=== PATIENT | female | born 1985 | race Caucasian/White ===

== ENCOUNTER 2020-05-30 04:48 | Day surgery (SDC) | payer OTHER ==
[2020-05-29 12:35] VITALS: BMI 26.4
[2020-05-30 09:21] LABS: INR 0.94 (0.83-1.09); PROTHROMBIN TIME (PATIENT) 11.6 SEC (9.7-13.0)
[2020-05-30 09:27] LABS: BASO % 0.5 % (0-2.0); EOS % 1.8 % (0-4.5); HEMATOCRIT 34.6 % (32.4-45.2); HEMOGLOBIN 11.2 GM/dL (10.7-15.3); LYMPH % 24.5 % (8-40); MCH 25.3 pg (25.7-33.7); MCHC 32.5 g/dl (32.0-36.0); MEAN CELL VOLUME 78.1 fl (80-96); MEAN PLT VOLUME 8.4 fl (7.5-11.1); MONO % 6.7 % (3.8-10.2); NEUT % 66.5 % (42.8-82.8); PLATELET COUNT 393 K/MM3 (134-434); RBC 4.43 M/mm3 (3.60-5.2); RDW 15.1 % (11.6-15.6); WHITE BLOOD COUNT 7.7 K/mm3 (4.0-10.0)
[2020-05-30 13:20] LABS: BF GLUCOSE (CSF ONLY) 58 mg/dL (40-70)
[2020-05-30 13:50] LABS: CSF APPEARANCE CLEAR; CSF COLOR COLORLESS; CSF WBC 1
[2020-05-30 14:24] VITALS: BP 101/54; PULSE 85; TEMP 97.5
== END 2020-05-30 14:23 | disposition home or self-care (01) ==
LOC: JRADIR 04:48
PROVIDERS: ATTEND Psychiatry & Neurology Neurology
PROC: 009U3ZX Drainage of Spinal Canal, Percutaneous Approach, Diagnostic (ICD-10-PCS; principal; 2020-05-30)
DX: G35 Multiple sclerosis (principal)
CPT/HCPCS: 36415; 62272; 82040; 82042; 82784; 82787; 82945; 83873; 83916; 84157; 84703; 85025; 85610; 87070; 87205

== ENCOUNTER 2020-05-31 16:33 | Emergency (ER) | payer OTHER ==
[2020-05-31 16:55] VITALS: TEMP 98.2; BMI 26.5
[2020-05-31] MEDS ORDERED: ACETAMINOPHEN 1000 MG/100 ML VIAL (NON FORMULARY) IVPB ONE (18:18)
[2020-05-31] MEDS ORDERED: LACTATED RINGERS SOLUTION 1000 ML INFUS.BAG IV ONE (18:20)
[2020-05-31] MEDS ORDERED: METOCLOPRAMIDE HCL INJECTION 10 MG/2 ML VIAL IVPUSH ONE (18:20)
[2020-05-31] MEDS ORDERED: ACETAMINOPHEN INJECTION 100 ML IVPB ONE (18:35)
[2020-05-31] MEDS ORDERED: METOCLOPRAMIDE HCL INJECTION 10 MG/2 ML VIAL ONE (18:35)
[2020-05-31] MEDS ORDERED: ACETAMINOPHEN/CAFFEINE/BUTALBITAL 1 TAB PO ONE (19:25)
[2020-05-31] MEDS ORDERED: ACETAMINOPHEN/CAFFEINE/BUTALBITAL 1 TAB ONE (19:43)
[2020-05-31 20:15] LABS: BASO % 1.1 % (0-2.0); EOS % 1.1 % (0-4.5); HEMOGLOBIN 11.3 GM/dL (10.7-15.3); LYMPH % 24.3 % (8-40); MCH 25.1 pg (25.7-33.7); MCHC 32.3 g/dl (32.0-36.0); MEAN CELL VOLUME 77.6 fl (80-96); MEAN PLT VOLUME 8.2 fl (7.5-11.1); MONO % 6.8 % (3.8-10.2); NEUT % 66.7 % (42.8-82.8); PLATELET COUNT 384 K/MM3 (134-434); RBC 4.51 M/mm3 (3.60-5.2); RDW 14.9 % (11.6-15.6); WHITE BLOOD COUNT 9.3 K/mm3 (4.0-10.0)
[2020-05-31 20:26] LABS: POTASSIUM 4.7 mmol/L (3.5-5.1)
[2020-05-31 20:29] LABS: ALBUMIN 3.6 g/dl (3.4-5.0); BLOOD UREA NITROGEN 7.5 mg/dL (7-18)
[2020-05-31 20:32] LABS: CREATININE 0.6 mg/dL (0.55-1.3)
[2020-05-31 20:33] LABS: TOT PROT 7.4 g/dl (6.4-8.2)
[2020-05-31 20:34] LABS: BILIRUBIN,TOTAL 0.2 mg/dL (0.2-1)
[2020-05-31 22:22] VITALS: BP 124/87; PULSE 77
== END 2020-05-31 22:23 | disposition home or self-care (01) ==
LOC: JER 16:33
PROC: 3E0333Z Introduction of Anti-inflammatory into Peripheral Vein, Percutaneous Approach (ICD-10-PCS; principal; 2020-05-31)
PROC: 3E033GC Introduction of Other Therapeutic Substance into Peripheral Vein, Percutaneous Approach (ICD-10-PCS; 2020-05-31)
DX: G97.1 Other reaction to spinal and lumbar puncture (principal)
CPT/HCPCS: 36415; 70450-TC; 80053; 84703; 85025; 99284-25; C9803; J0131; U0003

== ENCOUNTER 2023-04-27 04:01 | Inpatient (IN) | payer OTHER ==
[2023-04-21 16:41] VITALS: BMI 26.4
[2023-04-27] MEDS ORDERED: ceFAZolin SODIUM 1 GM VIAL ONE (08:34)
[2023-04-27] MEDS ORDERED: SUCCINYLCHOLINE CHLORIDE 200 MG/10 ML SYRINGE ONE (08:58)
[2023-04-27] MEDS ORDERED: PROPOFOL 20 ML ONE (08:58)
[2023-04-27] MEDS ORDERED: ROCURONIUM BROMIDE 50 MG/5 ML SYRINGE ONE (08:58)
[2023-04-27] MEDS ORDERED: MIDAZOLAM HCL 2 MG/2 ML SINGLE DOSE VIAL ONE (08:59)
[2023-04-27] MEDS ORDERED: HYDROmorphone HCl 2 MG/ML VIAL ONE (09:00)
[2023-04-27] MEDS ORDERED: CEFAZOLIN SODIUM 2 GM in DEXTROSE 5%-WATER 100 ML IVPB ONE (09:30)
[2023-04-27] MEDS ORDERED: ONDANSETRON 4 MG/2 ML VIAL IVPUSH PRN (10:16)
[2023-04-27] MEDS ORDERED: oxyCODONE HCL 5 MG TABLET PO PRN (10:16)
[2023-04-27] MEDS ORDERED: LIDOCAINE 1%/EPI 1:100000 (20 ML MULTI DOSE VIAL) ONE (10:21)
[2023-04-27] MEDS ORDERED: BUPIVACAINE HCL/PF 0.5% (5MG/ML) 10 ML VIAL ONE (10:21)
[2023-04-27] MEDS ORDERED: LACTATED RINGERS SOLUTION 1,000 ML IV SCH (10:30)
[2023-04-27] MEDS ORDERED: ceFAZolin SODIUM 1 GM VIAL IVPB ONE (11:21)
[2023-04-27] MEDS ORDERED: SUGAMMADEX SODIUM 200 MG/2 ML VIAL ONE (11:29)
[2023-04-27] MEDS ORDERED: LIDOCAINE HCL/PF 2% SDV 5ML VIAL ONE (11:37)
[2023-04-27] MEDS ORDERED: METOCLOPRAMIDE HCL INJECTION 10 MG/2 ML VIAL ONE (11:37)
[2023-04-27] MEDS ORDERED: SODIUM CHLORIDE 0.9% P/F 10 ML VIAL IJ ONE (11:37)
[2023-04-27] MEDS ORDERED: ONDANSETRON 4 MG/2 ML VIAL ONE (11:37)
[2023-04-27] MEDS ORDERED: DEXAMETHASONE SOD PHOSPHATE 4 MG/1 ML VIAL ONE (11:37)
[2023-04-27 17:33] LABS: BASO % 0.1 % (0-2.0); HEMATOCRIT 24.3 % (32.4-45.2); HEMOGLOBIN 7.1 GM/dL (10.7-15.3); LYMPH % 2.8 % (8-40); MCH 20.9 pg (25.7-33.7); MCHC 29.1 g/dl (32.0-36.0); MEAN PLT VOLUME 7.5 fl (7.5-11.1); MONO % 0.5 % (3.8-10.2); NEUT % 96.6 % (42.8-82.8); PLATELET COUNT 634 10^3/uL (134-434); RBC 3.37 M/mm3 (3.60-5.2); RDW 17.9 % (11.6-15.6); WHITE BLOOD COUNT 18.6 K/mm3 (4.0-10.0)
[2023-04-27 18:01] LABS: ANISOCYTOSIS 2+; MACROCYTOSIS 0; OVALOCYTE 1+; TARGET CELLS 1+; TEAR DROP CELLS 1+
[2023-04-27] MEDS ORDERED: ACETAMINOPHEN 500 MG TABLET (FP) PO PRN (18:43)
[2023-04-27] MEDS ORDERED: DOCUSATE SODIUM 100 MG CAPSULE (FP) PO PRN (18:44)
[2023-04-27] MEDS ORDERED: ELECTROLYTE-148 SOLN 1,000 ML IV SCH (18:45)
[2023-04-27] MEDS: IBUPROFEN 600 MG TABLET (FP) PO PRN (20:45)
[2023-04-27] MEDS: oxyCODONE HCL 5 MG TABLET PO PRN (23:43)
[2023-04-28] MEDS: IBUPROFEN 600 MG TABLET (FP) PO PRN (10:07)
[2023-04-28 11:51] LABS: BASO % 0.2 % (0-2.0); EOS % 0.2 % (0-4.5); HEMATOCRIT 21.7 % (32.4-45.2); LYMPH % 14.9 % (8-40); MCHC 30.7 g/dl (32.0-36.0); MEAN CELL VOLUME 71.7 fl (80-96); MEAN PLT VOLUME 7.6 fl (7.5-11.1); MONO % 8.1 % (3.8-10.2); NEUT % 76.6 % (42.8-82.8); PLATELET COUNT 565 10^3/uL (134-434); RBC 3.02 M/mm3 (3.60-5.2); RDW 17.6 % (11.6-15.6); WHITE BLOOD COUNT 11.9 K/mm3 (4.0-10.0)
[2023-04-28 12:00] LABS: HEMOGLOBIN 6.6 GM/dL (10.7-15.3)
[2023-04-28 18:42] LABS: HEMATOCRIT 26.6 % (32.4-45.2); HEMOGLOBIN 8.1 GM/dL (10.7-15.3); MCH 22.4 pg (25.7-33.7); MCHC 30.3 g/dl (32.0-36.0); MEAN CELL VOLUME 73.9 fl (80-96); MEAN PLT VOLUME 7.7 fl (7.5-11.1); PLATELET COUNT 558 10^3/uL (134-434); RDW 18.7 % (11.6-15.6); WHITE BLOOD COUNT 10.6 K/mm3 (4.0-10.0)
[2023-04-28] MEDS: oxyCODONE HCL 5 MG TABLET PO PRN (20:49)
[2023-04-28 21:57] VITALS: RESP 18
[2023-04-29 08:31] LABS: BASO % 0.5 % (0-2.0); EOS % 1.2 % (0-4.5); HEMATOCRIT 25.8 % (32.4-45.2); LYMPH % 22.7 % (8-40); MCHC 31.1 g/dl (32.0-36.0); MEAN CELL VOLUME 73.9 fl (80-96); MEAN PLT VOLUME 7.9 fl (7.5-11.1); NEUT % 67.6 % (42.8-82.8); PLATELET COUNT 522 10^3/uL (134-434); RBC 3.48 M/mm3 (3.60-5.2); RDW 18.4 % (11.6-15.6); WHITE BLOOD COUNT 8.9 K/mm3 (4.0-10.0)
[2023-04-29 11:32] VITALS: BP 105/66; PULSE 90; TEMP 98.1
== END 2023-04-29 12:05 | disposition home or self-care (01) | DRG 513 ==
LOC: JASUSAT 04:01 → JASU-SURG 04:01 → J3W 18:37 → JASUSAT 04-28 20:10 → J3W 04-28 20:11
PROVIDERS: ADMIT Obstetrics & Gynecology; ATTEND Obstetrics & Gynecology
PROC: 0U5B4ZZ Destruction of Endometrium, Percutaneous Endoscopic Approach (ICD-10-PCS; 2023-04-27)
PROC: 0DNW4ZZ Release Peritoneum, Percutaneous Endoscopic Approach (ICD-10-PCS; 2023-04-27)
PROC: 30233N1 Transfusion of Nonautologous Red Blood Cells into Peripheral Vein, Percutaneous Approach (ICD-10-PCS; 2023-04-27)
PROC: 8E0W8CZ Robotic Assisted Procedure of Trunk Region, Via Natural or Artificial Opening Endoscopic (ICD-10-PCS; 2023-04-27)
PROC: 0UB24ZZ Excision of Bilateral Ovaries, Percutaneous Endoscopic Approach (ICD-10-PCS; principal; 2023-04-27 10:00)
DX: N83.292 Other ovarian cyst, left side (principal); N80.202 Endometriosis of left fallopian tube, unspecified depth; N73.6 Female pelvic peritoneal adhesions (postinfective); N83.291 Other ovarian cyst, right side; G89.29 Other chronic pain; D64.9 Anemia, unspecified
CPT/HCPCS: 36415; 36430; 81025; 85025; 85027; 86850; 86900; 86901; 86922; 88305-TC; 94760; P9038; P9058

== ENCOUNTER 2023-05-20 21:26 | Emergency (ER) | payer OTHER ==
[2023-05-20 21:37] VITALS: TEMP 97.5; BMI 26.0
[2023-05-20] MEDS ORDERED: ACETAMINOPHEN INJECTION 100 ML IVPB ONE (22:16)
[2023-05-20] MEDS: ACETAMINOPHEN 1000 MG/100 ML BAG IVPB ONE (22:47)
[2023-05-20 22:53] LABS: BASO % 1.2 % (0-2.0); EOS % 1.7 % (0-4.5); HEMATOCRIT 31.2 % (32.4-45.2); HEMOGLOBIN 9.6 GM/dL (10.7-15.3); LYMPH % 19.5 % (8-40); MCH 22.9 pg (25.7-33.7); MCHC 30.7 g/dl (32.0-36.0); MEAN CELL VOLUME 74.5 fl (80-96); MONO % 6.2 % (3.8-10.2); NEUT % 71.4 % (42.8-82.8); PLATELET COUNT 487 10^3/uL (134-434); RBC 4.18 M/mm3 (3.60-5.2); RDW 19.6 % (11.6-15.6); WHITE BLOOD COUNT 11.2 K/mm3 (4.0-10.0)
[2023-05-20 22:59] LABS: PROTHROMBIN TIME (PATIENT) 11.6 SEC (9.7-13.0)
[2023-05-20 23:02] LABS: ACTIVATED PTT 28.6 SECONDS (25.2-36.5)
[2023-05-20 23:11] LABS: CHLORIDE 108 mmol/L (98-107); POTASSIUM 3.9 mmol/L (3.5-5.1); SODIUM 141 mmol/L (136-145)
[2023-05-20 23:13] LABS: CALCIUM 9.2 mg/dL (8.5-10.1)
[2023-05-20 23:14] LABS: ALBUMIN 3.8 g/dl (3.4-5.0); ANION GAP 8 mmol/L (4-13); BLOOD UREA NITROGEN 12.4 mg/dL (7-18); CO2 26 mmol/L (21-32); GLUCOSE,RANDOM 100 mg/dL (74-106)
[2023-05-20 23:17] LABS: CREATININE 0.7 mg/dL (0.55-1.3); SGOT/AST 14 U/L (15-37); SGPT/ALT 17 U/L (13-61)
[2023-05-20 23:18] LABS: BILIRUBIN,TOTAL < 0.1 mg/dL (0.2-1)
[2023-05-20 23:20] LABS: ALK PHOS 56 U/L (45-117)
[2023-05-21 00:43] VITALS: BP 108/72; PULSE 89; RESP 18
== END 2023-05-21 00:43 | disposition home or self-care (01) ==
LOC: JER 21:26
PROC: 3E033NZ Introduction of Analgesics, Hypnotics, Sedatives into Peripheral Vein, Percutaneous Approach (ICD-10-PCS; principal; 2023-05-20)
DX: N93.9 Abnormal uterine and vaginal bleeding, unspecified (principal); R42 Dizziness and giddiness; R10.30 Lower abdominal pain, unspecified; N80.9 Endometriosis, unspecified
CPT/HCPCS: 36415; 76830-TC; 80053; 84703; 85025; 85610; 85730; 86850; 86900; 86901; 99284-25; J0131

== ENCOUNTER 2023-08-10 09:29 | Day surgery (SDC) | payer OTHER ==
[~2023-08-10 09:29] MED LIST: FERRIC CARBOXYMALTOSE 750 MG in SODIUM CHLORIDE 250 ML IVPB ONE
[2023-08-10] MEDS: FERRIC CARBOXYMALTOSE 750 MG in SODIUM CHLORIDE 250 ML IVPB ONE (09:49)
[2023-08-10 15:24] VITALS: BP 102/42; PULSE 85; RESP 20; TEMP 98.2
== END 2023-08-10 11:00 | disposition home or self-care (01) ==
LOC: JONCNONCHE 09:29 → J7W 09:37 → JONCNONCHE 11:00
PROVIDERS: ATTEND Student in an Organized Health Care Education/Training Program
PROC: 3E033GC Introduction of Other Therapeutic Substance into Peripheral Vein, Percutaneous Approach (ICD-10-PCS; principal; 2023-08-10)
DX: D50.9 Iron deficiency anemia, unspecified (principal)
CPT/HCPCS: 96365; J1439

== ENCOUNTER 2023-08-11 22:19 | Emergency (ER) | payer OTHER ==
[2023-08-11 22:24] VITALS: BP 109/73; PULSE 79; RESP 18; TEMP 98.3; BMI 25.7
[2023-08-11 22:52] LABS: EPI CELLS 10 /uL (0-25.1); HYALINE CASTS 0 /uL (0-3.1); URINE APPEARANCE CLOUDY; URINE BACTERIA 4964 /uL (0-1359); URINE BILIRUBIN 2+ (NEGATIVE); URINE COLOR RED; URINE GLUCOSE (UA) NEGATIVE (NEGATIVE); URINE LEUK ESTERASE 3+ (NEGATIVE); URINE NITRITE POSITIVE (NEGATIVE); URINE PROTEIN 2+ (NEGATIVE); URINE RBC 321 /uL (0-23.9); URINE WBC 1784 /uL (0-25.8)
[2023-08-11 23:33] LABS: YEAST NONE SEEN (NEGATIVE)
== END 2023-08-11 23:08 | disposition home or self-care (01) ==
LOC: JERFT 22:19 → JER 22:19 → JERFT 23:08
DX: N30.01 Acute cystitis with hematuria (principal)
CPT/HCPCS: 81003; 87086; 87186; 99283-25

== ENCOUNTER 2023-08-17 09:45 | Day surgery (SDC) | payer OTHER ==
[2023-08-17] MEDS: FERRIC CARBOXYMALTOSE 750 MG in SODIUM CHLORIDE 250 ML IVPB ONE (09:50)
[2023-08-17 13:52] VITALS: TEMP 98.4
[2023-08-17 13:53] VITALS: BP 119/77; PULSE 80; RESP 16
== END 2023-08-17 10:45 | disposition home or self-care (01) ==
LOC: J7W 09:45 → JONCNONCHE 09:45
PROVIDERS: ATTEND Student in an Organized Health Care Education/Training Program
PROC: 3E033GC Introduction of Other Therapeutic Substance into Peripheral Vein, Percutaneous Approach (ICD-10-PCS; principal; 2023-08-17)
DX: D50.9 Iron deficiency anemia, unspecified (principal)
CPT/HCPCS: 96365; J1439

== ENCOUNTER 2023-11-11 14:23 | Emergency (ER) | payer OTHER ==
[2023-11-11 15:20] VITALS: BP 111/75; PULSE 103; RESP 16; TEMP 98.3; BMI 26.4
[2023-11-11] MEDS ORDERED: KETOROLAC TROMETHAMINE 30 MG/1 ML VIAL IVPUSH ONE (15:33)
[2023-11-11] MEDS: SODIUM CHLORIDE 0.9% 500 ML INFUS.BAG IV ONE (15:51)
[2023-11-11 15:59] LABS: EPI CELLS 4 /uL (0-25.1); HYALINE CASTS 0 /uL (0-3.1); PH,URINE 5.5 (5.0-8.0); URINE APPEARANCE CLEAR; URINE BACTERIA 3 /uL (0-1359); URINE BILIRUBIN NEGATIVE (NEGATIVE); URINE COLOR YELLOW; URINE GLUCOSE (UA) NEGATIVE (NEGATIVE); URINE KETONE NEGATIVE (NEGATIVE); URINE LEUK ESTERASE NEGATIVE (NEGATIVE); URINE NITRITE NEGATIVE (NEGATIVE); URINE PROTEIN NEGATIVE (NEGATIVE); URINE RBC 693 /uL (0-23.9); URINE UROBILINOGEN 0.2 mg/dL (0.2-1.0); URINE WBC 8 /uL (0-25.8)
[2023-11-11 16:03] LABS: BASO % 0.3 % (0-2.0); EOS % 0.4 % (0-4.5); HEMATOCRIT 35.3 % (32.4-45.2); HEMOGLOBIN 11.7 GM/dL (10.7-15.3); LYMPH % 11.9 % (8-40); MCH 27.6 pg (25.7-33.7); MCHC 33.1 g/dl (32.0-36.0); MEAN CELL VOLUME 83.3 fl (80-96); MEAN PLT VOLUME 7.8 fl (7.5-11.1); MONO % 5.3 % (3.8-10.2); NEUT % 82.1 % (42.8-82.8); PLATELET COUNT 441 10^3/uL (134-434); RBC 4.24 M/mm3 (3.60-5.2); RDW 13.2 % (11.6-15.6); WHITE BLOOD COUNT 10.9 K/mm3 (4.0-10.0)
[2023-11-11 16:17] LABS: POTASSIUM 4.1 mmol/L (3.5-5.1)
[2023-11-11 16:19] LABS: ALBUMIN 4.1 g/dl (3.4-5.0); BLOOD UREA NITROGEN 7.9 mg/dL (7-18); CALCIUM 9.3 mg/dL (8.5-10.1)
[2023-11-11 16:23] LABS: CREATININE 0.6 mg/dL (0.55-1.3)
[2023-11-11 16:24] LABS: BILIRUBIN,TOTAL 0.2 mg/dL (0.2-1); TOT PROT 7.6 g/dl (6.4-8.2)
== END 2023-11-11 19:21 | disposition left against medical advice (07) ==
LOC: JER 14:23
DX: R10.30 Lower abdominal pain, unspecified (principal)
CPT/HCPCS: 36415; 80053; 81003; 84703; 85025; 87086; 99283-25

== ENCOUNTER 2023-11-12 04:14 | Day surgery (SDC) | payer OTHER ==
[2023-11-11 09:58] VITALS: BMI 26.4
[2023-11-12] MEDS ORDERED: PHENAZOPYRIDINE HCL 100 MG TABLET (FP) ONE (06:41)
[2023-11-12] MEDS ORDERED: GABAPENTIN 300 MG CAPSULE ONE (06:41)
[2023-11-12] MEDS ORDERED: ACETAMINOPHEN 500 MG TABLET (FP) ONE (06:41)
[2023-11-12] MEDS: GABAPENTIN 300 MG CAPSULE PO ONE (06:49)
[2023-11-12] MEDS: ACETAMINOPHEN 500 MG TABLET (FP) PO ONE (06:49)
[2023-11-12] MEDS: PHENAZOPYRIDINE HCL 100 MG TABLET (FP) PO ONE (06:51)
[2023-11-12] MEDS ORDERED: PROPOFOL 20 ML ONE (07:22)
[2023-11-12] MEDS ORDERED: ROCURONIUM BROMIDE 50 MG/5 ML SYRINGE ONE ×2 (07:22→08:19)
[2023-11-12] MEDS ORDERED: MIDAZOLAM HCL 2 MG/2 ML SINGLE DOSE VIAL ONE (07:22)
[2023-11-12] MEDS ORDERED: ONDANSETRON 4 MG/2 ML VIAL IVPUSH PRN ×2 (07:34→11:42)
[2023-11-12] MEDS ORDERED: ACETAMINOPHEN 325 MG TABLET (FP) PO PRN (07:34)
[2023-11-12] MEDS ORDERED: oxyCODONE HCL 5 MG TABLET PO PRN ×4 (07:34→11:42)
[2023-11-12] MEDS: ceFAZolin SODIUM 1 GM VIAL IVPB ONE (07:50)
[2023-11-12] MEDS ORDERED: HYDROmorphone HCl 2 MG/ML VIAL ONE (07:52)
[2023-11-12] MEDS ORDERED: ceFAZolin SODIUM 1 GM VIAL ONE ×2 (07:56)
[2023-11-12] MEDS ORDERED: DEXAMETHASONE SOD PHOSPHATE 4 MG/1 ML VIAL ONE ×2 (08:21)
[2023-11-12] MEDS ORDERED: ONDANSETRON 4 MG/2 ML VIAL ONE ×2 (08:21)
[2023-11-12] MEDS ORDERED: KETOROLAC TROMETHAMINE 30 MG/1 ML VIAL ONE (08:21)
[2023-11-12] MEDS ORDERED: SUGAMMADEX SODIUM 200 MG/2 ML VIAL ONE (09:34)
[2023-11-12] MEDS: ACETAMINOPHEN 1000 MG/100 ML BAG IVPB ONE ×2 (10:15→13:30)
[2023-11-12] MEDS ORDERED: IBUPROFEN 800 MG/8 ML IJ IVPB PRN (11:42)
[2023-11-12] MEDS ORDERED: DOCUSATE SODIUM 100 MG CAPSULE (FP) PO PRN (11:42)
[2023-11-12] MEDS ORDERED: ACETAMINOPHEN INJECTION 100 ML IVPB ONE (13:07)
[2023-11-12 14:37] VITALS: RESP 18
[2023-11-12] MEDS: ACETAMINOPHEN 325 MG TABLET (FP) PO SCH (17:25)
[2023-11-12] MEDS: CEFAZOLIN 1 GM in DEXTROSE 5%-WATER - 50 ML IVPB SCH (17:27)
[2023-11-12 18:19] LABS: HEMATOCRIT 32.6 % (32.4-45.2); HEMOGLOBIN 10.5 GM/dL (10.7-15.3); MCH 26.8 pg (25.7-33.7); MCHC 32.3 g/dl (32.0-36.0); MEAN PLT VOLUME 7.9 fl (7.5-11.1); PLATELET COUNT 408 10^3/uL (134-434); RBC 3.92 M/mm3 (3.60-5.2); RDW 12.8 % (11.6-15.6); WHITE BLOOD COUNT 13.1 K/mm3 (4.0-10.0)
[2023-11-12 18:42] LABS: CALCIUM 9.1 mg/dL (8.5-10.1); POTASSIUM 4.5 mmol/L (3.5-5.1)
[2023-11-12 18:44] LABS: BLOOD UREA NITROGEN 7.2 mg/dL (7-18)
[2023-11-12 18:47] LABS: CREATININE 0.6 mg/dL (0.55-1.3)
[2023-11-12] MEDS: CEFAZOLIN SODIUM 2 GM in DEXTROSE 5%-WATER 100 ML IVPB ONE (19:22)
[2023-11-12] MEDS: LACTATED RINGERS SOLUTION 1,000 ML IV SCH (22:09)
[2023-11-12] MEDS: IBUPROFEN 600 MG TABLET (FP) PO PRN (23:28)
[2023-11-12] MEDS: SIMETHICONE 80 MG TAB.CHEW (FP) PO PRN (23:29)
[2023-11-13 08:19] LABS: HEMATOCRIT 25.9 % (32.4-45.2); HEMOGLOBIN 8.5 GM/dL (10.7-15.3); MCHC 32.7 g/dl (32.0-36.0); MEAN CELL VOLUME 82.4 fl (80-96); PLATELET COUNT 336 10^3/uL (134-434); RBC 3.15 M/mm3 (3.60-5.2); RDW 12.9 % (11.6-15.6); WHITE BLOOD COUNT 8.1 K/mm3 (4.0-10.0)
[2023-11-13 08:36] LABS: POTASSIUM 3.6 mmol/L (3.5-5.1)
[2023-11-13 08:44] LABS: BLOOD UREA NITROGEN 7.5 mg/dL (7-18); CALCIUM 8.5 mg/dL (8.5-10.1)
[2023-11-13 08:46] LABS: CREATININE 0.5 mg/dL (0.55-1.3)
[2023-11-13] MEDS: BISACODYL 5 MG TABLET.DR (FP) PO PRN (10:03)
[2023-11-13] MEDS: FERROUS SO4 325 MG TABLET (FP) PO SCH (10:03)
[2023-11-13] MEDS: ENOXAPARIN NA (PORCINE) 40 MG/0.4 ML DISP.SYRIN SQ SCH (10:03)
[2023-11-13 10:17] VITALS: BP 111/72; PULSE 72; TEMP 97.8
== END 2023-11-13 11:20 | disposition home or self-care (01) ==
LOC: JASUSAT 04:14 → JASU-SURG 04:14 → J3W 14:29 → JASUSAT 11-13 11:20
PROVIDERS: ATTEND Obstetrics & Gynecology
PROC: 0DNG4ZZ Release Left Large Intestine, Percutaneous Endoscopic Approach (ICD-10-PCS; 2023-11-12)
PROC: 0DNF4ZZ Release Right Large Intestine, Percutaneous Endoscopic Approach (ICD-10-PCS; 2023-11-12)
PROC: 0UT94ZZ Resection of Uterus, Percutaneous Endoscopic Approach (ICD-10-PCS; principal; 2023-11-12 07:30)
PROC: 0UT74ZZ Resection of Bilateral Fallopian Tubes, Percutaneous Endoscopic Approach (ICD-10-PCS; 2023-11-12 07:30)
PROC: 0DNW4ZZ Release Peritoneum, Percutaneous Endoscopic Approach (ICD-10-PCS; 2023-11-12 07:30)
DX: N80.03 Adenomyosis of the uterus (principal); N72 Inflammatory disease of cervix uteri; N73.6 Female pelvic peritoneal adhesions (postinfective); N70.01 Acute salpingitis
CPT/HCPCS: 58573; S2900; 36415; 80048; 81025; 85027; 86850; 86900; 86901; 88305-TC; 88307-TC; 94010; 94760; J0131

== ENCOUNTER 2023-11-18 05:12 | Emergency (ER) | payer OTHER ==
[2023-11-18 05:20] VITALS: BMI 26.4
[2023-11-18] MEDS ORDERED: ACETAMINOPHEN INJECTION 100 ML IVPB ONE ×2 (05:52→11:24)
[2023-11-18] MEDS: ACETAMINOPHEN 1000 MG/100 ML BAG IVPB ONE ×2 (06:01→11:35)
[2023-11-18] MEDS: SODIUM CHLORIDE 0.9% 500 ML INFUS.BAG IV ONE (06:01)
[2023-11-18 06:33] LABS: HEMATOCRIT 27.8 % (32.4-45.2); MCH 26.8 pg (25.7-33.7); MCHC 32.3 g/dl (32.0-36.0); MEAN PLT VOLUME 8.1 fl (7.5-11.1); PLATELET COUNT 436 10^3/uL (134-434); RBC 3.35 M/mm3 (3.60-5.2); RDW 12.5 % (11.6-15.6); WHITE BLOOD COUNT 23.3 K/mm3 (4.0-10.0)
[2023-11-18 06:35] LABS: EPI CELLS >36 /uL (0-25.1); HYALINE CASTS 2 /uL (0-3.1); PH,URINE 5.5 (5.0-8.0); URINE APPEARANCE CLOUDY; URINE BACTERIA 370 /uL (0-1359); URINE BILIRUBIN NEGATIVE (NEGATIVE); URINE COLOR YELLOW; URINE GLUCOSE (UA) NEGATIVE (NEGATIVE); URINE KETONE NEGATIVE (NEGATIVE); URINE LEUK ESTERASE TRACE (NEGATIVE); URINE NITRITE NEGATIVE (NEGATIVE); URINE PROTEIN TRACE (NEGATIVE); URINE RBC 19 /uL (0-23.9); URINE UROBILINOGEN 0.2 mg/dL (0.2-1.0); URINE WBC 57 /uL (0-25.8)
[2023-11-18 06:52] LABS: POTASSIUM 4.4 mmol/L (3.5-5.1)
[2023-11-18 06:54] LABS: CALCIUM 8.8 mg/dL (8.5-10.1)
[2023-11-18 06:55] LABS: ALBUMIN 3.3 g/dl (3.4-5.0); BLOOD UREA NITROGEN 6.2 mg/dL (7-18)
[2023-11-18 06:58] LABS: CREATININE 0.5 mg/dL (0.55-1.3)
[2023-11-18 07:00] LABS: BILIRUBIN,TOTAL 0.4 mg/dL (0.2-1); TOT PROT 6.6 g/dl (6.4-8.2)
[2023-11-18] MEDS ORDERED: PIPERACILLIN/TAZOB 3.375 GM 3.375 GM/50 ML BAG IVPB ONE (07:33)
[2023-11-18] MEDS ORDERED: PIPERACILLIN/TAZOB 4.5 GM 4.5 GM/100 ML BAG IVPB ONE (08:38)
[2023-11-18 08:39] LABS: PLATELET ESTIMATE SLT INCREASE
[2023-11-18] MEDS: PIPERACILLIN/TAZOB 4.5 GM 4.5 GM in DEXTROSE 5%-WATER 100 ML IVPB ONE (08:47)
[2023-11-18 12:27] VITALS: BP 96/59; PULSE 99; RESP 16; TEMP 98.4
== END 2023-11-18 13:18 | disposition home or self-care (01) ==
LOC: JER 05:12
PROC: 3E03329 Introduction of Other Anti-infective into Peripheral Vein, Percutaneous Approach (ICD-10-PCS; principal; 2023-11-18)
PROC: 3E033NZ Introduction of Analgesics, Hypnotics, Sedatives into Peripheral Vein, Percutaneous Approach (ICD-10-PCS; 2023-11-18)
PROC: 3E033NZ Introduction of Analgesics, Hypnotics, Sedatives into Peripheral Vein, Percutaneous Approach (ICD-10-PCS; 2023-11-18)
DX: R50.82 Postprocedural fever (principal); R53.81 Other malaise; R51.9 Headache, unspecified; G89.18 Other acute postprocedural pain; Z20.822 Contact with and (suspected) exposure to COVID-19
CPT/HCPCS: 0241U-QW; 36415; 71045-TC-FY; 74177-TC; 80053; 81003; 85025; 87040; 87086; 99285-25; J0131; Q9967

== ENCOUNTER 2023-11-27 12:46 | Day surgery (SDC) | payer OTHER ==
[2023-11-27] MEDS: FERRIC CARBOXYMALTOSE 750 MG in SODIUM CHLORIDE 250 ML IVPB ONE (13:06)
[2023-11-27 15:21] VITALS: TEMP 98.4
[2023-11-27 15:23] VITALS: BP 113/70; PULSE 70; RESP 20
== END 2023-11-27 14:00 | disposition home or self-care (01) ==
LOC: JONCNONCHE 12:46 → J7W 12:47 → JONCNONCHE 14:00
PROVIDERS: ATTEND Student in an Organized Health Care Education/Training Program
PROC: 3E033GC Introduction of Other Therapeutic Substance into Peripheral Vein, Percutaneous Approach (ICD-10-PCS; principal; 2023-11-27)
DX: D50.9 Iron deficiency anemia, unspecified (principal)
CPT/HCPCS: 96365; J1439

== ENCOUNTER 2023-12-04 10:48 | Day surgery (SDC) | payer OTHER ==
[2023-12-04] MEDS: FERRIC CARBOXYMALTOSE 750 MG in SODIUM CHLORIDE 250 ML IVPB ONE (11:15)
[2023-12-04 15:53] VITALS: BP 109/61; PULSE 86; RESP 18; TEMP 99.1
== END 2023-12-04 12:15 | disposition home or self-care (01) ==
LOC: J7W 10:48 → JONCNONCHE 10:48
PROVIDERS: ATTEND Student in an Organized Health Care Education/Training Program
PROC: 3E033GC Introduction of Other Therapeutic Substance into Peripheral Vein, Percutaneous Approach (ICD-10-PCS; principal; 2023-12-04)
DX: D50.9 Iron deficiency anemia, unspecified (principal)
CPT/HCPCS: 96365; J1439